=== PATIENT | female | born 1990 | race Caucasian/White ===

== ENCOUNTER → 2018-01-09 | Emergency (ER) | payer OTHER ==
[~2018-01-09] VITALS: Ht 165.1 cm; Wt 65.8 kg
[~2018-01-09] MED LIST: AMOX250 PO; AUGMENTIN125 MG/5 M PO; BETHANECHOL CHL10 MG; CEPHALEXIN250 MG/5 M PO; CIPRO500 MG PO; DIPHENOXYLATE-A1 TAB PO; FLAGYL500MG PO; FLEXERIL10 MG PO; FLEXERIL5 MG; GABAPENTIN300 MG PO; LOMITIL; NEURONTIN300 MG PO; PAMELOR25 MG PO; PERCOCET 5-3251 EACH PO; PERCOCET 5/3251 TAB PO; PROTONIX40 MG PO; PYRIDIUM200 MG; RECTICARE30 GM TP; TRAMADOL HCL-AP1 TAB PO; TRAMADOL HCL25 GM; ULTRACET PO
== END | disposition home or self-care (01) ==
LOC: ER 10:55
DX: N39.0 Urinary tract infection, site not specified (principal); M62.830 Muscle spasm of back

== ENCOUNTER → 2018-01-21 | Emergency (ER) | payer OTHER ==
[~2018-01-21] VITALS: Ht 165.1 cm; Wt 65.8 kg
[~2018-01-21] MED LIST changes: +AMOX-CLAV 875-1 EACH PO; +INTESTINEX680 M1 PO
== END | disposition home or self-care (01) ==
LOC: ER 23:15
DX: L03.317 Cellulitis of buttock (principal)

== ENCOUNTER 2018-02-15 09:01 | Outpatient (CLI) | payer OTHER | END 2018-02-15 09:03 | disposition home or self-care (01) | LOC: RAD 09:01 | DX: K60.5 Anorectal fistula (principal) ==

== ENCOUNTER 2018-03-06 14:52 | Outpatient (CLI) | payer OTHER | END 2018-03-06 18:46 | disposition home or self-care (01) | LOC: LAB 14:52 | DX: N30.00 Acute cystitis without hematuria (principal) ==

== ENCOUNTER 2018-06-09 15:50 | Emergency (ER) | payer OTHER ==
[~2018-06-09] VITALS: Ht 165.1 cm; Wt 70.8 kg
== END 2018-06-09 23:25 | disposition home or self-care (01) ==
LOC: ER 15:50
DX: K60.3 Anal fistula (principal)

== ENCOUNTER 2018-06-16 10:22 | Emergency (ER) | payer OTHER ==
[~2018-06-16] VITALS: Ht 165.1 cm; Wt 77.1 kg
== END 2018-06-16 18:29 | disposition home or self-care (01) ==
LOC: ER 10:22
DX: K61.0 Anal abscess (principal); K62.89 Other specified diseases of anus and rectum

== ENCOUNTER 2018-08-14 11:21 | Emergency (ER) | payer OTHER ==
[~2018-08-14] VITALS: Ht 165.1 cm; Wt 72.6 kg
[2018-08-14] MEDS ORDERED: TRANXENE T-TAB7.5 MG (11:54)
== END 2018-08-14 17:33 | disposition home or self-care (01) ==
LOC: ER 11:21
DX: N93.8 Other specified abnormal uterine and vaginal bleeding (principal)

== ENCOUNTER 2018-09-23 11:25 | Emergency (ER) | payer OTHER ==
[~2018-09-23] VITALS: Ht 165.1 cm; Wt 77.1 kg
[~2018-09-23 11:25] MED LIST changes: +TRANXENE T-TAB7.5 MG
== END 2018-09-23 16:57 | disposition home or self-care (01) ==
LOC: ER 11:25
DX: K59.09 Other constipation (principal); K80.80 Other cholelithiasis without obstruction

== ENCOUNTER → 2018-10-02 | Outpatient (CLI) | payer OTHER | END | disposition home or self-care (01) | LOC: NUCLEAR 08:00 | DX: R10.11 Right upper quadrant pain (principal) ==

== ENCOUNTER 2018-11-06 13:04 | Emergency (ER) | payer OTHER ==
[~2018-11-06] VITALS: Ht 165.1 cm; Wt 72.6 kg
== END 2018-11-06 18:47 | disposition home or self-care (01) ==
LOC: ER 13:04
DX: L02.31 Cutaneous abscess of buttock (principal)

== ENCOUNTER 2018-11-09 15:13 | Inpatient (IN) | payer OTHER ==
[~2018-11-09] VITALS: Ht 165.1 cm; Wt 74.8 kg
[2018-11-18] MEDS ORDERED: SUDOGEST60 MG PO (12:32)
[2018-11-18] MEDS ORDERED: LMX 515 GM TOP (12:32)
[2018-11-18] MEDS ORDERED: NEURONTIN300 MG PO (12:32)
[2018-11-18] MEDS ORDERED: FOLIC ACID1 MG PO (12:33)
[2018-11-18] MEDS ORDERED: Neurin-Sl Tablet Sl SL (12:33)
[2018-11-18] MEDS ORDERED: ZANTAC300 MG PO (12:34)
[2018-11-18] MEDS ORDERED: OXYC1TAB9 PO (12:34)
[2018-11-18] MEDS ORDERED: METRONIDAZOLE250 MG PO (12:35)
== END 2018-11-18 13:35 | disposition home or self-care (01) | DRG 347 ==
LOC: SURG 15:13 → SEC-K 15:13 → SURG 15:31 → SURH 11-13 21:42
PROVIDERS: ADMIT Surgery
PROC: 0D9Q0ZZ Drainage of Anus, Open Approach (ICD-10-PCS; principal; 2018-11-09)
PROC: 3E0T3BZ Introduction of Anesthetic Agent into Peripheral Nerves and Plexi, Percutaneous Approach (ICD-10-PCS; 2018-11-09)
PROC: 3E0F7GC Introduction of Other Therapeutic Substance into Respiratory Tract, Via Natural or Artificial Opening (ICD-10-PCS; 2018-11-13)
DX: K61.0 Anal abscess (principal); J15.7 Pneumonia due to Mycoplasma pneumoniae; K51.214 Ulcerative (chronic) proctitis with abscess; D62 Acute posthemorrhagic anemia; K51.211 Ulcerative (chronic) proctitis with rectal bleeding

== ENCOUNTER 2018-11-27 17:11 | Inpatient (IN) | payer OTHER ==
[~2018-11-27] VITALS: Ht 165.1 cm; Wt 74.8 kg
[~2018-11-27 17:11] MED LIST changes: +FOLIC ACID1 MG PO; +LMX 515 GM TOP; +METRONIDAZOLE250 MG PO; +Neurin-Sl Tablet Sl SL; +OXYC1TAB9 PO; +SUDOGEST60 MG PO; +ZANTAC300 MG PO
[2018-11-27] MEDS ORDERED: LEXAPRO20 MG PO (18:24)
--- NOTE | 2018-11-27 18:28 | NUR ---
PACIENTE ALERTA Y ORIENTADA X3, CON BUEN PATRON RESPIRATORIO Y SIGNOS VITALES ESTABLES, REFIERE DOLOR EN EL AREA RECTAL POR POSIBLE ABSCESO QUE REFIERE.. SE COLOCA EN CAMA EN ESPERA A SER LLAMADA.
--- NOTE | 2018-11-27 21:31 | NUR ---
EVALUA PTE. SE ORIENTA A PTE SOBRE TX MEDICO. PTE REFIERE COMPRENDER. SE REALIZAN MUESTRAS DE LABORATORIO BAJO MEDIDAS ASEPTICAS. SE ADMINISTRAN MEDICAMENTOS JESSY ORDEN MEDICA. PROCEDIMIENTOS LLEVADOS A CABO POR .
--- NOTE | 2018-11-28 01:31 | NUR ---
SE RECIBE PACIENTE ALERTA Y ORIENTADA X3 EN CLAUDIO CON BARANDAS ELEVADAS Y CABEZERA A 30 GRADOS. AREA DE VENOPUNCION PATENTE Y SHARLA DE EDEMA BAJANDO MEDICAMENTOS ORDENADOS. PACIENTE CON DOLOR EN EL GLUTEO, SE MANTIENE BAJO OBSERVACION.
--- NOTE | 2018-11-28 07:46 | NUR ---
SE RECIBE PTE ALERTA LA CUAL SE ENCUENTRA EN CLAUDIO CON BARANDAS ELEVADAS CON AREA DE VENOPUNCION SHARLA DE EDEMA Y [id number] CON IV FLUID 0.9NSS AT 150ML/HR EN ESPERA DE CONSULTA CON DR. Cameron WALTER.
[2018-12-04] MEDS ORDERED: DIPHENOXYLATE-1 EACH PO (14:16)
[2018-12-04] MEDS ORDERED: Tylenol 160MG/5 ML B PO (14:16)
[2018-12-04] MEDS ORDERED: CARAFATE1 GM PO (14:16)
[2018-12-04] MEDS ORDERED: MUPIROCIN22 GM TOP (14:16)
[2018-12-04] MEDS ORDERED: Intestinex CAP PO (14:16)
== END 2018-12-04 17:10 | disposition home or self-care (01) | DRG 394 ==
LOC: ER 17:11 → SURH 11-28 09:51 → SEC-K 11-28 09:51 → SURH 11-28 10:48
PROVIDERS: ADMIT Surgery
DX: K61.0 Anal abscess (principal); K50.90 Crohn's disease, unspecified, without complications; K62.6 Ulcer of anus and rectum; K29.60 Other gastritis without bleeding; K62.89 Other specified diseases of anus and rectum; A08.8 Other specified intestinal infections; B95.2 Enterococcus as the cause of diseases classified elsewhere; B96.1 Klebsiella pneumoniae [K. pneumoniae] as the cause of diseases classified elsewhere; R15.9 Full incontinence of feces

== ENCOUNTER → 2019-03-13 | Emergency (ER) | payer OTHER ==
[~2019-03-13] VITALS: Ht 165.1 cm; Wt 72.6 kg
[~2019-03-13] MED LIST changes: +ACETAMINOP160 MG/54 PO; +ACIDOPHILUS1 EAC3 PO; +CARAFATE1 GM PO; +DIPHENOXYLATE-1 EACH PO; +IMODIUM A-D2 M2 PO; +INTEGRA F CAPS1 EACH PO; +Intestinex CAP PO; +LEXAPRO20 MG PO; +MUPIROCIN22 GM TOP; +RESTORIL30 M1 PO; +Tylenol 160MG/5 ML B PO
== END | disposition home or self-care (01) ==
LOC: ER 13:04
DX: K61.0 Anal abscess (principal); K62.89 Other specified diseases of anus and rectum

== ENCOUNTER 2019-03-14 11:37 | Inpatient (IN) | payer OTHER ==
[~2019-03-14] VITALS: Ht 165.1 cm; Wt 70.3 kg
[~2019-03-14 11:37] MED LIST changes: -ACETAMINOP160 MG/54 PO; -ACIDOPHILUS1 EAC3 PO; -IMODIUM A-D2 M2 PO; -INTEGRA F CAPS1 EACH PO
[2019-03-16] MEDS ORDERED: ACIDOPHILUS1 EAC3 PO (15:50)
[2019-03-20] MEDS ORDERED: INTEGRA F CAPS1 EACH PO (09:08)
[2019-03-20] MEDS ORDERED: METRONIDAZOLE250 MG PO (09:10)
[2019-03-20] MEDS ORDERED: ACETAMINOP160 MG/54 PO (09:13)
[2019-03-20] MEDS ORDERED: NEURONTIN300 MG PO (09:14)
[2019-03-20] MEDS ORDERED: IMODIUM A-D2 M2 PO (09:16)
== END 2019-03-20 12:26 | disposition home or self-care (01) | DRG 386 ==
LOC: ER 11:37 → SEC-K 13:47 → SURG 13:47
PROVIDERS: ADMIT Surgery
PROC: 0DJD8ZZ Inspection of Lower Intestinal Tract, Via Natural or Artificial Opening Endoscopic (ICD-10-PCS; principal; 2019-03-16)
DX: K50.114 Crohn's disease of large intestine with abscess (principal); K61.1 Rectal abscess; K62.5 Hemorrhage of anus and rectum; L02.31 Cutaneous abscess of buttock; D62 Acute posthemorrhagic anemia; K50.111 Crohn's disease of large intestine with rectal bleeding; K50.10 Crohn's disease of large intestine without complications; K62.89 Other specified diseases of anus and rectum; F41.1 Generalized anxiety disorder; R15.2 Fecal urgency; K29.00 Acute gastritis without bleeding; R31.29 Other microscopic hematuria

== ENCOUNTER 2019-03-30 14:03 | Emergency (ER) | payer OTHER ==
[~2019-03-30] VITALS: Ht 165.1 cm; Wt 74.8 kg
[~2019-03-30 14:03] MED LIST changes: +ACETAMINOP160 MG/54 PO; +ACIDOPHILUS1 EAC3 PO; +IMODIUM A-D2 M2 PO; +INTEGRA F CAPS1 EACH PO
== END 2019-03-31 01:36 | disposition designated cancer center or children's hospital (05) ==
LOC: ER 14:03
DX: K62.89 Other specified diseases of anus and rectum (principal); K62.5 Hemorrhage of anus and rectum

== ENCOUNTER 2019-04-04 17:17 | Inpatient (IN) | payer OTHER ==
[~2019-04-04] VITALS: Ht 152.4 cm; Wt 5.0 kg
[2019-04-04] MEDS ORDERED: NEURONTIN300 MG PO (17:41)
[2019-04-18] MEDS ORDERED: NORFLEX100MG PO (13:44)
[2019-04-18] MEDS ORDERED: INTEGRA F CAPS1 EACH PO (13:44)
[2019-04-18] MEDS ORDERED: ACIDOPHILUS1 EAC3 PO (13:45)
[2019-04-18] MEDS ORDERED: NeurRONTin 400MG CAP PO (13:45)
[2019-04-18] MEDS ORDERED: OXYC1TAB9 PO (13:46)
== END 2019-04-18 15:15 | disposition home or self-care (01) | DRG 330 ==
LOC: ER 17:17 → SURH 19:32
PROVIDERS: ADMIT Surgery
PROC: 02HV33Z Insertion of Infusion Device into Superior Vena Cava, Percutaneous Approach (ICD-10-PCS; 2019-04-11)
PROC: 0D1N474 Bypass Sigmoid Colon to Cutaneous with Autologous Tissue Substitute, Percutaneous Endoscopic Approach (ICD-10-PCS; principal; 2019-04-11 15:00)
DX: K51.213 Ulcerative (chronic) proctitis with fistula (principal); K62.5 Hemorrhage of anus and rectum; D62 Acute posthemorrhagic anemia; K61.0 Anal abscess; F32.0 Major depressive disorder, single episode, mild; K56.690 Other partial intestinal obstruction; R15.9 Full incontinence of feces; K29.00 Acute gastritis without bleeding; F41.8 Other specified anxiety disorders; I80.9 Phlebitis and thrombophlebitis of unspecified site

== ENCOUNTER 2019-06-18 19:38 | Emergency (ER) | payer OTHER ==
[~2019-06-18] VITALS: Ht 165.1 cm; Wt 72.6 kg
[~2019-06-18 19:38] MED LIST changes: +NORFLEX100MG PO; +NeurRONTin 400MG CAP PO
[2019-06-20] MEDS ORDERED: [UNRECOGNIZED DRUG - OTHER] (19:13)
== END 2019-06-19 08:35 | disposition home or self-care (01) ==
LOC: ER 19:38
DX: K62.5 Hemorrhage of anus and rectum (principal); K50.90 Crohn's disease, unspecified, without complications

== ENCOUNTER → 2019-06-20 | Emergency (ER) | payer OTHER ==
[~2019-06-20] VITALS: Ht 165.1 cm; Wt 72.6 kg
[~2019-06-20] MED LIST changes: +[UNRECOGNIZED DRUG - OTHER]
== END | disposition home or self-care (01) ==
LOC: ER 18:52
DX: L02.31 Cutaneous abscess of buttock (principal); B96.29 Other Escherichia coli [E. coli] as the cause of diseases classified elsewhere; B96.89 Other specified bacterial agents as the cause of diseases classified elsewhere; E86.0 Dehydration

== ENCOUNTER 2019-07-03 15:40 | Emergency (ER) | payer OTHER ==
[~2019-07-03] VITALS: Ht 165.1 cm; Wt 72.6 kg
== END 2019-07-04 16:05 | disposition home or self-care (01) ==
LOC: ER 15:40
DX: K62.5 Hemorrhage of anus and rectum (principal); K62.6 Ulcer of anus and rectum

== ENCOUNTER 2019-08-18 12:39 | Emergency (ER) | payer OTHER ==
[~2019-08-18] VITALS: Ht 165.1 cm; Wt 74.8 kg
[2019-08-18] MEDS ORDERED: VITAMIN B125000 MCG (13:16)
== END 2019-08-19 06:42 | disposition home or self-care (01) ==
LOC: ER 12:39
DX: L02.31 Cutaneous abscess of buttock (principal); N83.292 Other ovarian cyst, left side; B96.29 Other Escherichia coli [E. coli] as the cause of diseases classified elsewhere; B96.4 Proteus (mirabilis) (morganii) as the cause of diseases classified elsewhere; B95.2 Enterococcus as the cause of diseases classified elsewhere; B95.4 Other streptococcus as the cause of diseases classified elsewhere
CPT/HCPCS: 72193; Q9965

== ENCOUNTER 2019-08-20 17:03 | Inpatient (IN) | payer OTHER ==
[~2019-08-20] VITALS: Ht 165.1 cm; Wt 74.8 kg
[~2019-08-20 17:03] MED LIST changes: +VITAMIN B125000 MCG
[2019-08-27] MEDS ORDERED: PHENERGAN25 MG PO (13:29)
[2019-08-27] MEDS ORDERED: JUVEN PACKET1 EAC1 PO (13:29)
[2019-08-27] MEDS ORDERED: CARAFATE1 GM PO (13:31)
[2019-08-27] MEDS ORDERED: INTEGRA F CAPS1 EACH PO (13:31)
== END 2019-08-27 14:21 | disposition home or self-care (01) | DRG 603 ==
LOC: ER 17:03 → SEC-K 08-21 07:32 → MEDJ 08-21 07:32 → SEC-K 08-21 09:52 → MEDI 08-21 17:15 → MEDJ 08-21 17:15
PROVIDERS: ADMIT Surgery
PROC: 8E0ZXY6 Isolation (ICD-10-PCS; principal; 2019-08-21)
DX: L02.31 Cutaneous abscess of buttock (principal); K50.118 Crohn's disease of large intestine with other complication; Z16.12 Extended spectrum beta lactamase (ESBL) resistance; Z93.3 Colostomy status; F41.8 Other specified anxiety disorders; D64.89 Other specified anemias; F32.9 Major depressive disorder, single episode, unspecified; B95.2 Enterococcus as the cause of diseases classified elsewhere; B96.29 Other Escherichia coli [E. coli] as the cause of diseases classified elsewhere

== ENCOUNTER 2019-09-23 16:47 | Emergency (ER) | payer OTHER ==
[~2019-09-23] VITALS: Ht 165.1 cm; Wt 74.8 kg
[~2019-09-23 16:47] MED LIST changes: +JUVEN PACKET1 EAC1 PO; +PHENERGAN25 MG PO
[2019-09-23] MEDS ORDERED: TILENOR (17:37)
== END 2019-09-23 21:30 | disposition home or self-care (01) ==
LOC: ER 16:47
DX: N83.292 Other ovarian cyst, left side (principal); D72.828 Other elevated white blood cell count; Z76.5 Malingerer [conscious simulation]

== ENCOUNTER → 2019-09-29 | Outpatient (CLI) | payer OTHER ==
[~2019-09-29] MED LIST changes: +TILENOR
== END | disposition home or self-care (01) ==
LOC: MAMO-SONO 08:15 → SONOGRAMA 08:22
DX: N83.02 Follicular cyst of left ovary (principal)

== ENCOUNTER 2019-10-02 18:46 | Emergency (ER) | payer OTHER ==
[~2019-10-02] VITALS: Ht 165.1 cm; Wt 77.1 kg
[2019-10-03] MEDS ORDERED: LEVSIN/SL0.125 MG PO (08:18)
== END 2019-10-03 08:45 | disposition home or self-care (01) ==
LOC: ER 18:46
DX: R10.32 Left lower quadrant pain (principal); R10.13 Epigastric pain

== ENCOUNTER 2019-10-19 18:14 | Emergency (ER) | payer OTHER ==
[~2019-10-19] VITALS: Ht 165.1 cm; Wt 79.4 kg
[~2019-10-19 18:14] MED LIST changes: +LEVSIN/SL0.125 MG PO
== END 2019-10-20 16:29 | disposition home or self-care (01) ==
LOC: ER 18:14
DX: L02.31 Cutaneous abscess of buttock (principal); B96.29 Other Escherichia coli [E. coli] as the cause of diseases classified elsewhere; B95.2 Enterococcus as the cause of diseases classified elsewhere

== ENCOUNTER 2019-10-24 12:23 | Emergency (ER) | payer OTHER ==
[~2019-10-24] VITALS: Ht 165.1 cm; Wt 79.4 kg
== END 2019-10-24 22:02 | disposition home or self-care (01) ==
LOC: ER 12:23
DX: K61.0 Anal abscess (principal); B96.29 Other Escherichia coli [E. coli] as the cause of diseases classified elsewhere; B95.2 Enterococcus as the cause of diseases classified elsewhere

== ENCOUNTER → 2019-11-20 09:54 | Outpatient (CLI) | payer OTHER | END | disposition home or self-care (01) | LOC: LAB 09:54 → EKG 09:54 | DX: K60.5 Anorectal fistula (principal); K50.013 Crohn's disease of small intestine with fistula; Z01.810 Encounter for preprocedural cardiovascular examination ==

== ENCOUNTER 2020-01-06 12:44 | Emergency (ER) | payer OTHER ==
[~2020-01-06] VITALS: Ht 165.1 cm; Wt 77.1 kg
[2020-01-07] MEDS ORDERED: GABAPENTIN400 MG PO (10:49)
[2020-01-07] MEDS ORDERED: CIPRO500 MG PO (10:49)
[2020-01-07] MEDS ORDERED: INTESTINEX680 M1 PO (10:49)
[2020-01-07] MEDS ORDERED: LEVSIN/SL0.125 MG SL (10:49)
== END 2020-01-07 10:57 | disposition home or self-care (01) ==
LOC: ER 12:44
DX: K94.01 Colostomy hemorrhage (principal)

== ENCOUNTER 2020-01-13 20:45 | Emergency (ER) | payer OTHER ==
[~2020-01-13] VITALS: Ht 165.1 cm; Wt 79.4 kg
[~2020-01-13 20:45] MED LIST changes: +GABAPENTIN400 MG PO; +LEVSIN/SL0.125 MG SL
[2020-01-13] MEDS ORDERED: XANAX1 MG (20:55)
== END 2020-01-14 10:59 | disposition home or self-care (01) ==
LOC: ER 20:45
DX: K94.01 Colostomy hemorrhage (principal); K58.0 Irritable bowel syndrome with diarrhea; R19.7 Diarrhea, unspecified; R11.0 Nausea; D64.89 Other specified anemias

== ENCOUNTER 2022-01-26 14:19 | Emergency (ER) | payer OTHER ==
[~2022-01-26] VITALS: Ht 165.1 cm; Wt 65.8 kg
[~2022-01-26 14:19] MED LIST changes: +XANAX1 MG
[2022-01-26] MEDS ORDERED: CLONAZEPAM0.5 MG PO (14:39)
== END 2022-01-26 20:05 | disposition home or self-care (01) ==
LOC: ER 14:19
DX: N93.8 Other specified abnormal uterine and vaginal bleeding (principal); D25.9 Leiomyoma of uterus, unspecified; N83.202 Unspecified ovarian cyst, left side; Z88.6 Allergy status to analgesic agent; Z88.8 Allergy status to other drugs, medicaments and biological substances

== ENCOUNTER 2022-02-01 12:06 | Emergency (ER) | payer OTHER ==
[~2022-02-01] VITALS: Ht 165.1 cm; Wt 65.8 kg
[~2022-02-01 12:06] MED LIST changes: +CLONAZEPAM0.5 MG PO
[2022-02-01] MEDS ORDERED: NORFLEX100MG PO (14:54)
[2022-02-01] MEDS ORDERED: MUPIROCIN1 G1 TOP (14:54)
[2022-02-17] MEDS ORDERED: XANAX2 MG PO (16:06)
[2022-02-17] MEDS ORDERED: FUSION PLUS CA1 EACH PO (16:06)
[2022-02-17] MEDS ORDERED: CLONAZEPAM0.5 MG PO (16:06)
== END 2022-02-01 15:19 | disposition home or self-care (01) ==
LOC: EMR PED 12:06 → ER 12:10 → EMR PED 12:10 → ER 15:19
DX: S59.902A Unspecified injury of left elbow, initial encounter (principal); Z88.6 Allergy status to analgesic agent

== ENCOUNTER 2022-02-15 18:16 | Emergency (ER) | payer OTHER ==
[~2022-02-15] VITALS: Ht 165.1 cm; Wt 63.5 kg
[~2022-02-15 18:16] MED LIST changes: +MUPIROCIN1 G1 TOP
[2022-02-17] MEDS ORDERED: XANAX2 MG PO (16:06)
[2022-02-17] MEDS ORDERED: CLONAZEPAM0.5 MG PO (16:06)
[2022-02-17] MEDS ORDERED: FUSION PLUS CA1 EACH PO (16:06)
== END 2022-02-15 23:01 | disposition home or self-care (01) ==
LOC: ER 18:16
DX: F41.9 Anxiety disorder, unspecified (principal); R00.2 Palpitations; Z88.8 Allergy status to other drugs, medicaments and biological substances

== ENCOUNTER 2022-02-22 10:29 | Day surgery (SDC) | payer OTHER ==
[~2022-02-22 10:29] MED LIST changes: +FUSION PLUS CA1 EACH PO; +XANAX2 MG PO
[2022-02-22] MEDS ORDERED: TYLENOL325 MG PO (11:08)
== END 2022-02-22 14:45 | disposition home or self-care (01) ==
LOC: CIR.AMB 10:29
PROVIDERS: ATTEND Obstetrics & Gynecology Gynecology
DX: N84.0 Polyp of corpus uteri (principal); Z88.8 Allergy status to other drugs, medicaments and biological substances; J45.909 Unspecified asthma, uncomplicated; E05.80 Other thyrotoxicosis without thyrotoxic crisis or storm; K21.9 Gastro-esophageal reflux disease without esophagitis

== ENCOUNTER → 2022-04-09 | Emergency (ER) | payer OTHER ==
[~2022-04-09] VITALS: Ht 165.1 cm; Wt 63.5 kg
[~2022-04-09] MED LIST changes: +PEPCID AC20 MG; +TYLENOL325 MG PO
== END | disposition home or self-care (01) ==
LOC: ER 06:58
DX: B34.8 Other viral infections of unspecified site (principal)

== ENCOUNTER 2022-05-09 18:20 | Emergency (ER) | payer OTHER ==
[~2022-05-09] VITALS: Ht 165.1 cm; Wt 68.0 kg
== END 2022-05-09 22:09 | disposition home or self-care (01) ==
LOC: ER 18:20
DX: R51.9 Headache, unspecified (principal); Z88.8 Allergy status to other drugs, medicaments and biological substances

== ENCOUNTER 2022-05-12 14:16 | Emergency (ER) | payer OTHER ==
[~2022-05-12] VITALS: Ht 165.1 cm; Wt 68.0 kg
== END 2022-05-12 18:44 | disposition home or self-care (01) ==
LOC: ER 14:16
DX: F41.9 Anxiety disorder, unspecified (principal); R07.9 Chest pain, unspecified; R51.9 Headache, unspecified; Z88.6 Allergy status to analgesic agent; Z88.1 Allergy status to other antibiotic agents

== ENCOUNTER 2022-06-29 09:58 | Emergency (ER) | payer OTHER ==
[~2022-06-29] VITALS: Ht 165.1 cm; Wt 68.0 kg
== END 2022-06-29 14:41 | disposition home or self-care (01) ==
LOC: ER 09:58
DX: N39.0 Urinary tract infection, site not specified (principal); R11.0 Nausea; E05.90 Thyrotoxicosis, unspecified without thyrotoxic crisis or storm; Z20.822 Contact with and (suspected) exposure to COVID-19; Z91.041 Radiographic dye allergy status; Z88.6 Allergy status to analgesic agent; Z88.5 Allergy status to narcotic agent

== ENCOUNTER 2022-06-30 13:19 | Emergency (ER) | payer OTHER ==
[~2022-06-30] VITALS: Ht 152.4 cm; Wt 65.8 kg
== END 2022-06-30 18:14 | disposition home or self-care (01) ==
LOC: ER 13:19
DX: F41.9 Anxiety disorder, unspecified (principal); J45.909 Unspecified asthma, uncomplicated; K21.9 Gastro-esophageal reflux disease without esophagitis; E03.9 Hypothyroidism, unspecified; N39.0 Urinary tract infection, site not specified; Z91.041 Radiographic dye allergy status; Z88.2 Allergy status to sulfonamides; Z88.6 Allergy status to analgesic agent

== ENCOUNTER 2022-09-30 13:20 | Emergency (ER) | payer OTHER ==
[~2022-09-30] VITALS: Ht 165.1 cm; Wt 65.8 kg
[~2022-09-30 13:20] MED LIST changes: +DOLOGESIC-DF 51 EACH PO
[2022-09-30] MEDS ORDERED: PEPCID AC20 MG PO (18:09)
[2022-09-30] MEDS ORDERED: LEVSIN/SL0.125 MG SL (18:09)
[2022-09-30] MEDS ORDERED: CARAFATE1 GM PO (18:09)
== END 2022-09-30 18:28 | disposition home or self-care (01) ==
LOC: ER 13:20
DX: R10.84 Generalized abdominal pain (principal); Z88.8 Allergy status to other drugs, medicaments and biological substances

== ENCOUNTER 2022-11-17 03:03 | Emergency (ER) | payer OTHER ==
[~2022-11-17] VITALS: Ht 165.1 cm; Wt 68.0 kg
[~2022-11-17 03:03] MED LIST changes: +PEPCID AC20 MG PO
[2022-11-17] MEDS ORDERED: PAXLOVID 300-11 EACH PO (07:52)
== END 2022-11-17 09:07 ==
LOC: ER 03:03
DX: U07.1 COVID-19 (principal); Z88.8 Allergy status to other drugs, medicaments and biological substances

== ENCOUNTER → 2023-01-02 | Emergency (ER) | payer OTHER ==
[~2023-01-02] VITALS: Ht 165.1 cm; Wt 68.0 kg
[~2023-01-02] MED LIST changes: +PAXLOVID 300-11 EACH PO
== END | disposition home or self-care (01) ==
LOC: ER 20:30
DX: R51.9 Headache, unspecified (principal); Z88.8 Allergy status to other drugs, medicaments and biological substances

== ENCOUNTER → 2023-01-05 | Emergency (ER) | payer OTHER ==
[~2023-01-05] VITALS: Ht 162.6 cm; Wt 63.5 kg
== END | disposition home or self-care (01) ==
LOC: ER 10:46
DX: M54.2 Cervicalgia (principal); K29.70 Gastritis, unspecified, without bleeding; Z88.2 Allergy status to sulfonamides; Z91.041 Radiographic dye allergy status; Z88.6 Allergy status to analgesic agent

== ENCOUNTER 2023-01-23 22:44 | Emergency (ER) | payer OTHER ==
[~2023-01-23] VITALS: Ht 165.1 cm; Wt 65.8 kg
== END 2023-01-24 02:59 | disposition home or self-care (01) ==
LOC: ER 22:44
DX: R51.9 Headache, unspecified (principal); R11.10 Vomiting, unspecified

== ENCOUNTER → 2023-01-26 | Emergency (ER) | payer OTHER ==
[~2023-01-26] VITALS: Ht 165.1 cm; Wt 65.8 kg
== END | disposition left against medical advice (07) ==
LOC: ER 15:32
DX: R51.9 Headache, unspecified (principal); Z91.041 Radiographic dye allergy status; Z88.5 Allergy status to narcotic agent; Z88.8 Allergy status to other drugs, medicaments and biological substances

== ENCOUNTER 2023-03-22 09:38 | Emergency (ER) | payer OTHER ==
[~2023-03-22] VITALS: Ht 165.1 cm; Wt 65.8 kg
== END 2023-03-22 15:52 | disposition home or self-care (01) ==
LOC: ER 09:38
DX: N93.8 Other specified abnormal uterine and vaginal bleeding (principal)

== ENCOUNTER 2023-07-01 22:15 | Emergency (ER) | payer OTHER ==
[~2023-07-01] VITALS: Ht 165.1 cm; Wt 68.0 kg
== END 2023-07-02 08:01 | disposition home or self-care (01) ==
LOC: ER 22:15
PROVIDERS: General Practice
DX: D25.9 Leiomyoma of uterus, unspecified (principal); N93.9 Abnormal uterine and vaginal bleeding, unspecified; N83.201 Unspecified ovarian cyst, right side; Z88.8 Allergy status to other drugs, medicaments and biological substances

== ENCOUNTER 2023-08-13 11:33 | Emergency (ER) | payer OTHER ==
[~2023-08-13] VITALS: Ht 165.1 cm; Wt 68.0 kg
[~2023-08-13 11:33] MED LIST changes: +TOPROL XL25 M1 PO
[2023-08-13] MEDS ORDERED: NORFLEX100MG PO (20:05)
== END 2023-08-13 20:13 | disposition home or self-care (01) ==
LOC: ER 11:33
DX: R53.81 Other malaise (principal); Z88.6 Allergy status to analgesic agent; Z91.041 Radiographic dye allergy status

== ENCOUNTER 2023-09-09 09:13 | Emergency (ER) | payer OTHER ==
[~2023-09-09] VITALS: Ht 165.1 cm; Wt 67.1 kg
== END 2023-09-09 12:13 | disposition home or self-care (01) ==
LOC: ER 09:13
DX: R07.9 Chest pain, unspecified (principal); I49.8 Other specified cardiac arrhythmias; Z91.040 Latex allergy status; Z88.6 Allergy status to analgesic agent; M94.0 Chondrocostal junction syndrome [Tietze]

== ENCOUNTER 2023-09-10 20:28 | Emergency (ER) | payer OTHER ==
[~2023-09-10] VITALS: Ht 165.1 cm; Wt 68.0 kg
== END 2023-09-10 21:34 | disposition home or self-care (01) ==
LOC: ER 20:28
DX: M54.2 Cervicalgia (principal); Z88.6 Allergy status to analgesic agent; Z91.041 Radiographic dye allergy status

== ENCOUNTER → 2023-10-02 | Emergency (ER) | payer OTHER ==
[~2023-10-02] VITALS: Ht 165.1 cm; Wt 65.8 kg
== END | disposition left against medical advice (07) ==
LOC: ER 17:42
DX: M54.50 Low back pain, unspecified (principal); Z88.6 Allergy status to analgesic agent; Z88.8 Allergy status to other drugs, medicaments and biological substances; Z91.041 Radiographic dye allergy status

== ENCOUNTER 2023-10-05 08:02 | Emergency (ER) | payer OTHER ==
[~2023-10-05] VITALS: Ht 162.6 cm; Wt 63.5 kg
[2023-10-05] MEDS ORDERED: PEPCID AC20 MG PO (08:38)
== END 2023-10-05 08:52 | disposition home or self-care (01) ==
LOC: ER 08:02
DX: M54.2 Cervicalgia (principal); J02.9 Acute pharyngitis, unspecified; E04.1 Nontoxic single thyroid nodule; Z88.6 Allergy status to analgesic agent; Z88.8 Allergy status to other drugs, medicaments and biological substances; Z91.041 Radiographic dye allergy status

== ENCOUNTER 2023-10-22 02:27 | Emergency (ER) | payer OTHER ==
[~2023-10-22] VITALS: Ht 165.1 cm; Wt 61.2 kg
== END 2023-10-22 04:24 | disposition home or self-care (01) ==
LOC: ER 02:27
DX: J06.9 Acute upper respiratory infection, unspecified (principal)

== ENCOUNTER 2023-11-12 12:26 | Emergency (ER) | payer OTHER ==
[~2023-11-12] VITALS: Ht 165.1 cm; Wt 63.5 kg
== END 2023-11-12 16:33 | disposition home or self-care (01) ==
LOC: ER 12:27
DX: J06.9 Acute upper respiratory infection, unspecified (principal); Z88.8 Allergy status to other drugs, medicaments and biological substances

== ENCOUNTER 2023-11-20 12:30 | Emergency (ER) | payer OTHER ==
[~2023-11-20] VITALS: Ht 165.1 cm; Wt 65.8 kg
[2023-11-20 14:21] LABS: HEMATOCRIT 36.6 % (36.0-45.00); HEMOGLOBIN 12.4 g/dL (12.0-15.00); MEAN CORPUSCULAR HEMOGLOBIN 27.3 pg (27.00-32.0); MEAN CORPUSCULAR HGB CONC 33.8 g/dl (32.0-36.0); PLATELET COUNT 249 K/uL (150-450); RED BLOOD COUNT 4.52 M/uL (4.00-6.00)
[2023-11-20 14:25] LABS: URINE APPEARANCE Clear; URINE BILIRRUBIN Negative (NEGATIVE); URINE BLOOD Large; URINE COLOR Yellow; URINE GLUCOSE Negative (NEGATIVE); URINE LEUKOCYTE Trace; URINE NITRATE Negative; URINE PROTEIN Negative (NEGATIVE); URINE UROBILINOGEN 0.2 E.U./dl
[2023-11-20 14:28] LABS: URINE BACTERIA 45.3 uL (0.0-1933); URINE EPITHELIAL CELLS 3.3 uL (0.0-38.8); URINE RBC 83.6 uL (0.0-20.8); URINE WBC 7.8 uL (0.0-23.2)
[2023-11-20 14:55] LABS: ALBUMIN 4.4 gm/dL (3.4-5.0); BILIRUBIN TOTAL 0.54 mg/dL (0.3-1.2); BILIRUBIN,CONJUGATED 0.15 mg/dL (0.0-0.2); BILIRUBIN,UNCONJUGATED 0.39 mg/dL (0.0-0.6); CREATININE SERUM 0.74 mg/dL (0.55-1.02); GFR 89.31; POTASSIUM 4.05 mEq/L (3.5-5.1); TOTAL PROTEIN 8.6 gm/dL (6.4-8.2)
== END 2023-11-20 17:58 | disposition home or self-care (01) ==
LOC: ER 12:30
PROVIDERS: General Practice
DX: K29.70 Gastritis, unspecified, without bleeding (principal)

== ENCOUNTER 2023-12-25 04:03 | Emergency (ER) | payer OTHER ==
[~2023-12-25] VITALS: Ht 165.1 cm; Wt 63.5 kg
[2023-12-25] MEDS ORDERED: FAMOTIDINE/PF 20 MG in 0.9 % SODIUM CHLORIDE 8 ML IV PUSH STA (04:36)
[2023-12-25] MEDS ORDERED: 0.9 % SODIUM CHLORIDE 500 ML IV ONE (04:45)
[2023-12-25] MEDS ORDERED: ONDANSETRON HCL 2 MG/ML VIAL IV ONE (04:45)
[2023-12-25] MEDS ORDERED: BUTALB/ACETAMINOPHEN/CAFFEINE 1 TAB TABLET PO ONE (04:45)
[2023-12-25] MEDS ORDERED: ZOFRAN8 MG PO (04:50)
== END 2023-12-25 05:46 | disposition home or self-care (01) ==
LOC: ER 04:03
DX: K29.70 Gastritis, unspecified, without bleeding (principal); R51.9 Headache, unspecified; Z88.6 Allergy status to analgesic agent; Z88.8 Allergy status to other drugs, medicaments and biological substances; Z91.041 Radiographic dye allergy status

== ENCOUNTER → 2023-12-31 | Emergency (ER) | payer OTHER ==
[~2023-12-31] VITALS: Ht 165.1 cm; Wt 65.8 kg
[~2023-12-31] MED LIST changes: +ZOFRAN8 MG PO
== END | disposition left against medical advice (07) ==
LOC: ER 10:40
DX: Z53.21 Procedure and treatment not carried out due to patient leaving prior to being seen by health care provider (principal)

== ENCOUNTER 2024-01-13 11:13 | Emergency (ER) | payer OTHER ==
[~2024-01-13] VITALS: Ht 165.1 cm; Wt 63.5 kg
[2024-01-13] MEDS ORDERED: FAMOtidine 10 MG/ML (4ML VIAL) IV STA (12:30)
[2024-01-13] MEDS ORDERED: ONDANSETRON HCL 2 MG/ML VIAL IV STA (12:31)
[2024-01-13] MEDS ORDERED: METOCLOPRAMIDE HCL 5 MG/ML VIAL IV STA (12:31)
[2024-01-13] MEDS ORDERED: 0.9 % SODIUM CHLORIDE 1,000 ML IV STA (12:33)
[2024-01-13 12:53] LABS: HEMATOCRIT 36.8 % (36.0-45.00); HEMOGLOBIN 12.5 g/dL (12.0-15.00); MEAN CELL VOLUME 81.3 fL (80.00-100.00); MEAN CORPUSCULAR HEMOGLOBIN 27.6 pg (27.00-32.0); PLATELET COUNT 236 K/uL (150-450); RED BLOOD COUNT 4.53 M/uL (4.00-6.00); RED CELL DISTRIBUTION WIDTH 13.9 % (11.5-14.5)
[2024-01-13 13:28] LABS: URINE APPEARANCE Clear; URINE BILIRRUBIN Negative (NEGATIVE); URINE BLOOD Trace; URINE COLOR Yellow; URINE GLUCOSE Negative (NEGATIVE); URINE LEUKOCYTE Small; URINE NITRATE Negative; URINE PROTEIN Negative (NEGATIVE); URINE UROBILINOGEN 0.2 E.U./dl
[2024-01-13 13:29] LABS: ALBUMIN 4.1 gm/dL (3.4-5.0); BILIRUBIN TOTAL 0.58 mg/dL (0.3-1.2); BILIRUBIN,CONJUGATED 0.14 mg/dL (0.0-0.2); BILIRUBIN,UNCONJUGATED 0.44 mg/dL (0.0-0.6); CALCIUM 9.7 mg/dL (8.5-10.1); CREATININE SERUM 0.83 mg/dL (0.55-1.02); GFR 78.23; POTASSIUM 4.29 mEq/L (3.5-5.1); TOTAL PROTEIN 8.7 gm/dL (6.4-8.2)
[2024-01-13 13:32] LABS: URINE BACTERIA 134.7 uL (0.0-1933); URINE EPITHELIAL CELLS 2.4 uL (0.0-38.8); URINE RBC 3.3 uL (0.0-20.8); URINE WBC 27.7 uL (0.0-23.2)
== END 2024-01-13 16:39 | disposition home or self-care (01) ==
LOC: ER 11:13
PROVIDERS: General Practice
DX: R10.9 Unspecified abdominal pain (principal); Z93.3 Colostomy status; F41.8 Other specified anxiety disorders; K21.9 Gastro-esophageal reflux disease without esophagitis; Z91.041 Radiographic dye allergy status; Z88.6 Allergy status to analgesic agent; R11.10 Vomiting, unspecified

== ENCOUNTER 2024-06-15 18:52 | Emergency (ER) | payer OTHER ==
[~2024-06-15] VITALS: Ht 165.1 cm; Wt 63.5 kg
[~2024-06-15 18:52] MED LIST changes: +ANUSOL-HC25 MG RECTAL; +BENTYL10 MG/1 ML IM; +LEXAPRO5 MG PO; +XANAX XR0.5 MG PO; +XANAX0.25 MG PO
[2024-06-15] MEDS ORDERED: ORPHENADRINE CITRATE 30 MG/ML AMPUL ONE (20:38)
[2024-06-15] MEDS ORDERED: ORPHENADRINE CITRATE 30 MG/ML AMPUL IV ONE (20:45)
[2024-06-15 20:50] LABS: HEMATOCRIT 35.8 % (36.0-45.00); HEMOGLOBIN 11.9 g/dL (12.0-15.00); MEAN CELL VOLUME 82.2 fL (80.00-100.00); MEAN CORPUSCULAR HEMOGLOBIN 27.4 pg (27.00-32.0); MEAN CORPUSCULAR HGB CONC 33.3 g/dl (32.0-36.0); PLATELET COUNT 221 K/uL (150-450); RED BLOOD COUNT 4.35 M/uL (4.00-6.00); RED CELL DISTRIBUTION WIDTH 15.3 % (11.5-14.5)
[2024-06-15 20:51] LABS: URINE APPEARANCE Clear; URINE BILIRRUBIN Negative (NEGATIVE); URINE BLOOD Trace; URINE COLOR Yellow; URINE GLUCOSE Negative (NEGATIVE); URINE KETONE Negative (NEGATIVE); URINE LEUKOCYTE Negative; URINE NITRATE Negative; URINE PROTEIN Negative (NEGATIVE); URINE UROBILINOGEN 0.2 E.U./dl
[2024-06-15 20:54] LABS: URINE BACTERIA 16.3 uL (0.0-1933); URINE EPITHELIAL CELLS 1.3 uL (0.0-38.8); URINE RBC 7.3 uL (0.0-20.8); URINE WBC 0.6 uL (0.0-23.2)
[2024-06-15 21:19] LABS: ALBUMIN 4.3 gm/dL (3.4-5.0); BILIRUBIN TOTAL 0.35 mg/dL (0.3-1.2); CALCIUM 9.2 mg/dL (8.5-10.1); CREATININE SERUM 0.65 mg/dL (0.55-1.02); GFR 103.72; GLOBULINA 4.1 G/DL (2.4-3.5); POTASSIUM 3.67 mEq/L (3.5-5.1); TOTAL PROTEIN 8.4 gm/dL (6.4-8.2)
== END 2024-06-15 23:09 | disposition home or self-care (01) ==
LOC: ER 18:54
PROVIDERS: Emergency Medicine
DX: M54.10 Radiculopathy, site unspecified (principal); M62.830 Muscle spasm of back; R10.9 Unspecified abdominal pain; Z88.6 Allergy status to analgesic agent; Z88.8 Allergy status to other drugs, medicaments and biological substances; Z91.041 Radiographic dye allergy status

== ENCOUNTER → 2024-07-22 | Emergency (ER) | payer OTHER ==
[~2024-07-22] VITALS: Ht 165.1 cm; Wt 65.8 kg
[~2024-07-22] MED LIST changes: +CLORAZEPATE DI7.5 MG PO
== END | disposition left against medical advice (07) ==
LOC: ER 10:22
DX: Z53.21 Procedure and treatment not carried out due to patient leaving prior to being seen by health care provider (principal)

== ENCOUNTER 2024-11-03 13:27 | Emergency (ER) | payer OTHER ==
[~2024-11-03] VITALS: Ht 165.1 cm; Wt 65.8 kg
[2024-11-03] MEDS ORDERED: ACETAMINOPHEN 500 MG GEL..CAP PO ONE (16:26)
[2024-11-03] MEDS ORDERED: ACETAMINOPHEN 325 MG TABLET PO ONE (16:30)
[2024-11-03 18:29] LABS: ALBUMIN 3.9 gm/dL (3.4-5.0); BILIRUBIN TOTAL 0.52 mg/dL (0.3-1.2); CREATININE SERUM 0.64 mg/dL (0.55-1.02); GLOBULINA 3.7 G/DL (2.4-3.5); HEMATOCRIT 35.3 % (36.0-45.00); HEMOGLOBIN 12.1 g/dL (12.0-15.00); MEAN CELL VOLUME 85.2 fL (80.00-100.00); MEAN CORPUSCULAR HEMOGLOBIN 29.2 pg (27.00-32.0); MEAN CORPUSCULAR HGB CONC 34.3 g/dl (32.0-36.0); PLATELET COUNT 215 K/uL (150-450); POTASSIUM 3.71 mEq/L (3.5-5.1); RED BLOOD COUNT 4.15 M/uL (4.00-6.00); RED CELL DISTRIBUTION WIDTH 13.4 % (11.5-14.5); TOTAL PROTEIN 7.6 gm/dL (6.4-8.2)
[2024-11-03 18:40] LABS: PH,URINE 5.5 (5.0-8.0); URINE APPEARANCE Cloudy; URINE BILIRRUBIN Negative (NEGATIVE); URINE BLOOD Large; URINE COLOR Yellow; URINE GLUCOSE Negative (NEGATIVE); URINE KETONE 15 (NEGATIVE); URINE LEUKOCYTE Trace; URINE NITRATE Negative; URINE PROTEIN Negative (NEGATIVE); URINE UROBILINOGEN 0.2 E.U./dl
[2024-11-03 18:44] LABS: URINE BACTERIA 85.6 uL (0.0-1933); URINE EPITHELIAL CELLS 9.7 uL (0.0-38.8); URINE RBC 1605.9 uL (0.0-20.8); URINE WBC 21.9 uL (0.0-23.2)
[2024-11-03] MEDS ORDERED: BACTRIM DS TAB1 EACH PO (18:56)
[2024-11-03] MEDS ORDERED: PEPCID AC20 MG PO (18:56)
[2024-11-03] MEDS ORDERED: TAMS0.4C PO (18:56)
== END 2024-11-03 19:12 | disposition home or self-care (01) ==
LOC: ER 13:29
PROVIDERS: General Practice
DX: R10.9 Unspecified abdominal pain (principal); Z91.041 Radiographic dye allergy status; Z88.8 Allergy status to other drugs, medicaments and biological substances; Z93.2 Ileostomy status; N39.0 Urinary tract infection, site not specified

== ENCOUNTER 2024-11-14 13:11 | Emergency (ER) | payer OTHER ==
[~2024-11-14] VITALS: Ht 165.1 cm; Wt 61.2 kg
[~2024-11-14 13:11] MED LIST changes: +BACTRIM DS TAB1 EACH PO; +TAMS0.4C PO
[2024-11-14] MEDS ORDERED: FAMOTIDINE/PF 20 MG in 0.9 % SODIUM CHLORIDE 8 ML IV PUSH STA (13:38)
[2024-11-14] MEDS ORDERED: ONDANSETRON HCL 2 MG/ML VIAL IV ONE (13:45)
[2024-11-14] MEDS ORDERED: HYOSCYAMINE SULFATE 0.125 MG TAB.SUBL SL ONE (13:45)
[2024-11-14] MEDS ORDERED: 0.9 % SODIUM CHLORIDE 1,000 ML IV SCH (13:45)
[2024-11-14] MEDS ORDERED: HYOSCYAMINE SULFATE 0.125 MG TAB.SUBL ONE (14:10)
[2024-11-14] MEDS ORDERED: ONDANSETRON HCL 2 MG/ML VIAL ONE (14:11)
[2024-11-14] MEDS ORDERED: FAMOTIDINE/PF 20 MG/2 ML VIAL ONE (14:11)
[2024-11-14 14:20] LABS: HEMATOCRIT 36.9 % (36.0-45.00); HEMOGLOBIN 12.7 g/dL (12.0-15.00); MEAN CELL VOLUME 85.6 fL (80.00-100.00); MEAN CORPUSCULAR HEMOGLOBIN 29.5 pg (27.00-32.0); MEAN CORPUSCULAR HGB CONC 34.4 g/dl (32.0-36.0); PLATELET COUNT 203 K/uL (150-450); RED BLOOD COUNT 4.31 M/uL (4.00-6.00); RED CELL DISTRIBUTION WIDTH 13.5 % (11.5-14.5)
[2024-11-14 15:46] LABS: BILIRUBIN TOTAL 0.91 mg/dL (0.3-1.2); CALCIUM 9.2 mg/dL (8.5-10.1); CREATININE SERUM 0.58 mg/dL (0.55-1.02); GFR 117.63; GLOBULINA 3.4 G/DL (2.4-3.5); POTASSIUM 3.75 mEq/L (3.5-5.1); TOTAL PROTEIN 7.4 gm/dL (6.4-8.2)
[2024-11-14 17:56] LABS: URINE APPEARANCE Clear; URINE BILIRRUBIN Negative (NEGATIVE); URINE BLOOD Moderate; URINE COLOR Yellow; URINE GLUCOSE Negative (NEGATIVE); URINE LEUKOCYTE Small; URINE NITRATE Negative; URINE PROTEIN Negative (NEGATIVE); URINE UROBILINOGEN 0.2 E.U./dl
[2024-11-14 17:57] LABS: URINE BACTERIA 445.4 uL (0.0-1933); URINE EPITHELIAL CELLS 17.2 uL (0.0-38.8); URINE RBC 9.5 uL (0.0-20.8); URINE WBC 88.4 uL (0.0-23.2)
[2024-11-14 17:58] LABS: URINE KETONE >=160 (NEGATIVE)
== END 2024-11-14 18:48 | disposition home or self-care (01) ==
LOC: ER 13:11
PROVIDERS: General Practice
DX: R10.2 Pelvic and perineal pain (principal); Z93.3 Colostomy status; Z88.5 Allergy status to narcotic agent; Z88.6 Allergy status to analgesic agent; Z88.8 Allergy status to other drugs, medicaments and biological substances; Z91.041 Radiographic dye allergy status

== ENCOUNTER 2025-01-18 10:45 | Emergency (ER) | payer OTHER ==
[~2025-01-18] VITALS: Ht 165.1 cm; Wt 65.8 kg
[2025-01-18] MEDS ORDERED: 0.9 % SODIUM CHLORIDE 1,000 ML IV STA (14:47)
[2025-01-18] MEDS ORDERED: FAMOtidine 10 MG/ML (4ML VIAL) IV STA (14:50)
[2025-01-18] MEDS ORDERED: FAMOTIDINE/PF 20 MG/2 ML VIAL ONE (15:16)
[2025-01-18 15:48] LABS: HEMOGLOBIN 12.2 g/dL (12.0-15.00); MEAN CELL VOLUME 86.6 fL (80.00-100.00); MEAN CORPUSCULAR HEMOGLOBIN 29.3 pg (27.00-32.0); MEAN CORPUSCULAR HGB CONC 33.8 g/dl (32.0-36.0); PLATELET COUNT 221 K/uL (150-450); RED BLOOD COUNT 4.16 M/uL (4.00-6.00); RED CELL DISTRIBUTION WIDTH 13.4 % (11.5-14.5)
[2025-01-18 16:11] LABS: BILIRUBIN TOTAL 0.71 mg/dL (0.3-1.2); BILIRUBIN,CONJUGATED 0.15 mg/dL (0.0-0.2); BILIRUBIN,UNCONJUGATED 0.56 mg/dL (0.0-0.6); CALCIUM 9.2 mg/dL (8.5-10.1); CREATININE SERUM 0.57 mg/dL (0.55-1.02); GFR 120.01; POTASSIUM 3.89 mEq/L (3.5-5.1); TOTAL PROTEIN 7.6 gm/dL (6.4-8.2)
[2025-01-18 16:14] LABS: PH,URINE 5.5 (5.0-8.0); URINE APPEARANCE Clear; URINE BILIRRUBIN Negative (NEGATIVE); URINE BLOOD Small; URINE COLOR Yellow; URINE GLUCOSE Negative (NEGATIVE); URINE KETONE 15 (NEGATIVE); URINE LEUKOCYTE Moderate; URINE NITRATE Negative; URINE PROTEIN Negative (NEGATIVE); URINE UROBILINOGEN 0.2 E.U./dl
[2025-01-18 16:18] LABS: URINE BACTERIA 998.6 uL (0.0-1933); URINE EPITHELIAL CELLS 11.7 uL (0.0-38.8); URINE RBC 24.7 uL (0.0-20.8); URINE WBC 249.4 uL (0.0-23.2)
[2025-01-18] MEDS ORDERED: ACETAMINOPHEN 325 MG TABLET PO ONE (17:30)
[2025-01-18] MEDS ORDERED: ACETAMINOPHEN 500 MG GEL..CAP PO ONE (19:12)
[2025-01-18] MEDS ORDERED: CIPRO500 MG PO (19:16)
== END 2025-01-18 19:24 | disposition home or self-care (01) ==
LOC: ER 10:46
PROVIDERS: General Practice
DX: N39.0 Urinary tract infection, site not specified (principal); Z88.8 Allergy status to other drugs, medicaments and biological substances

== ENCOUNTER 2025-02-08 13:40 | Emergency (ER) | payer OTHER ==
[~2025-02-08] VITALS: Ht 165.1 cm; Wt 65.8 kg
[2025-02-08] MEDS ORDERED: ACETAMINOPHEN 500 MG GEL..CAP PO ONE ×2 (15:15→15:45)
== END 2025-02-08 17:33 | disposition home or self-care (01) ==
LOC: ER 13:41
DX: M62.838 Other muscle spasm (principal); M25.512 Pain in left shoulder; R07.89 Other chest pain; Z88.8 Allergy status to other drugs, medicaments and biological substances

== ENCOUNTER → 2025-03-10 | Emergency (ER) | payer OTHER ==
[~2025-03-10] VITALS: Ht 165.1 cm; Wt 59.0 kg
[~2025-03-10] MED LIST changes: +ORPHENADRINE CITRATE 30 MG/ML AMPUL IM ONE
== END | disposition home or self-care (01) ==
LOC: ER 08:33
DX: M54.2 Cervicalgia (principal); Z88.5 Allergy status to narcotic agent; Z88.8 Allergy status to other drugs, medicaments and biological substances; Z91.041 Radiographic dye allergy status

== ENCOUNTER 2025-03-25 04:52 | Emergency (ER) | payer OTHER ==
[~2025-03-25] VITALS: Ht 165.1 cm; Wt 63.5 kg
[~2025-03-25 04:52] MED LIST changes: -ORPHENADRINE CITRATE 30 MG/ML AMPUL IM ONE
[2025-03-25] MEDS ORDERED: FAMOTIDINE/PF 20 MG/2 ML VIAL IV PUSH STA (05:55)
[2025-03-25] MEDS ORDERED: ONDANSETRON HCL 2 MG/ML VIAL IV STA (05:56)
[2025-03-25] MEDS ORDERED: 0.9 % SODIUM CHLORIDE 1,000 ML IV ONE (06:00)
[2025-03-25] MEDS ORDERED: FAMOTIDINE/PF 20 MG/2 ML VIAL ONE (06:02)
[2025-03-25] MEDS ORDERED: ONDANSETRON HCL 2 MG/ML VIAL ONE (06:03)
[2025-03-25] MEDS ORDERED: BARIUM SULFATE 450 ML ORAL.SUSP PO ONE (06:04)
[2025-03-25 07:15] LABS: BASO % 0.9 % (0.1-1.2); EOS # 0.05 (0.04-0.54); EOS % 0.9 % (0.7-7.0); HEMOGLOBIN 11.7 g/dL (11.2-15.7); LYMPH # 1.44 (1.18-3.74); LYMPH % 26.9 % (19.3-53.1); MEAN CORPUSCULAR HEMOGLOBIN 28.4 pg (25.6-32.2); MONO # 0.26 (0.24-0.82); MONO % 4.9 % (4.7-12.5); NEUT # 3.55 (1.56-6.13); NEUT % 66.2 % (34.0-71.1); PLATELET COUNT 177 K/uL (163-369); RED BLOOD COUNT 4.12 M/uL (3.93-5.22); RED CELL DISTRIBUTION WIDTH 12.6 % (11.6-14.4)
[2025-03-25 07:48] LABS: PROTHROMBIN TIME 10.9 SECONDS (9.0-11.5)
[2025-03-25 07:58] LABS: ALBUMIN 4.1 gm/dL (3.4-5.0); BILIRUBIN TOTAL 0.48 mg/dL (0.3-1.2); BILIRUBIN,CONJUGATED 0.13 mg/dL (0.0-0.2); BILIRUBIN,UNCONJUGATED 0.35 mg/dL (0.0-0.6); CALCIUM 9.6 mg/dL (8.5-10.1); CREATININE SERUM 0.64 mg/dL (0.55-1.02); GLOBULINA 3.9 G/DL (2.4-3.5); POTASSIUM 4.21 mEq/L (3.5-5.1)
[2025-03-25 08:53] LABS: URINE APPEARANCE Clear; URINE BILIRRUBIN Negative (NEGATIVE); URINE BLOOD Trace; URINE COLOR Yellow; URINE GLUCOSE Negative (NEGATIVE); URINE KETONE Negative (NEGATIVE); URINE LEUKOCYTE Large; URINE NITRATE Negative; URINE PROTEIN Negative (NEGATIVE); URINE UROBILINOGEN 0.2 E.U./dl
[2025-03-25 08:58] LABS: URINE BACTERIA 974.2 uL (0.0-1933); URINE EPITHELIAL CELLS 9.4 uL (0.0-38.8); URINE RBC 24.4 uL (0.0-20.8); URINE WBC 135.8 uL (0.0-23.2)
== END 2025-03-25 12:46 | disposition home or self-care (01) ==
LOC: ER 05:01
PROVIDERS: General Practice
DX: R10.9 Unspecified abdominal pain (principal); Z91.041 Radiographic dye allergy status; Z88.8 Allergy status to other drugs, medicaments and biological substances
CPT/HCPCS: 36415; 74177; Q9965

== ENCOUNTER 2025-04-06 17:56 | Emergency (ER) | payer OTHER ==
[~2025-04-06] VITALS: Ht 152.4 cm; Wt 59.0 kg
[2025-04-06] MEDS ORDERED: CIPROFLOXACIN IN 5 % DEXTROSE 400 MG/200 ML PIGGYBAG IV ONE (20:04)
[2025-04-06] MEDS ORDERED: CIPROFLOXACIN IN 5 % DEXTROSE 200 MG/100 ML PIGGYBAG IV STA (20:07)
[2025-04-06 20:25] LABS: BASO % 0.6 % (0.1-1.2); EOS # 0.08 (0.04-0.54); EOS % 0.8 % (0.7-7.0); HEMATOCRIT 34.8 % (34.1-44.9); HEMOGLOBIN 11.6 g/dL (11.2-15.7); LYMPH # 1.99 (1.18-3.74); LYMPH % 20.8 % (19.3-53.1); MEAN CORPUSCULAR HEMOGLOBIN 28.3 pg (25.6-32.2); MONO # 0.54 (0.24-0.82); MONO % 5.6 % (4.7-12.5); NEUT # 6.89 (1.56-6.13); PLATELET COUNT 217 K/uL (163-369); RED CELL DISTRIBUTION WIDTH 12.6 % (11.6-14.4)
[2025-04-06 20:29] LABS: URINE APPEARANCE Clear; URINE BILIRRUBIN Negative (NEGATIVE); URINE BLOOD Negative; URINE COLOR Yellow; URINE GLUCOSE Negative (NEGATIVE); URINE KETONE Trace (NEGATIVE); URINE LEUKOCYTE Trace; URINE NITRATE Negative; URINE PROTEIN Negative (NEGATIVE); URINE UROBILINOGEN 0.2 E.U./dl
[2025-04-06] MEDS ORDERED: CIPROFLOXACIN HCL 500 MG TABLET PO ONE (20:30)
[2025-04-06 20:32] LABS: URINE BACTERIA 56.2 uL (0.0-1933); URINE EPITHELIAL CELLS 3.7 uL (0.0-38.8); URINE RBC 4.8 uL (0.0-20.8); URINE WBC 8.6 uL (0.0-23.2)
[2025-04-06 20:48] LABS: CALCIUM 9.7 mg/dL (8.5-10.1); CREATININE SERUM 0.56 mg/dL (0.55-1.02); GFR 122.49; POTASSIUM 3.47 mEq/L (3.5-5.1)
[2025-04-06] MEDS ORDERED: ACETAMINOPHEN 500 MG GEL..CAP PO ONE (21:51)
[2025-04-06] MEDS ORDERED: ACETAMINOPHEN 500 MG GEL..CAP PO STA (21:58)
== END 2025-04-07 01:56 | disposition home or self-care (01) ==
LOC: ER 18:34
PROVIDERS: Emergency Medicine
DX: N39.0 Urinary tract infection, site not specified (principal); R10.9 Unspecified abdominal pain; Z88.5 Allergy status to narcotic agent; Z88.8 Allergy status to other drugs, medicaments and biological substances; Z91.041 Radiographic dye allergy status

== ENCOUNTER 2025-05-17 15:41 | Emergency (ER) | payer OTHER ==
[~2025-05-17] VITALS: Ht 165.1 cm; Wt 59.0 kg
[2025-05-17 16:59] LABS: BASO % 0.7 % (0.1-1.2); EOS # 0.05 (0.04-0.54); EOS % 0.8 % (0.7-7.0); LYMPH # 1.39 (1.18-3.74); LYMPH % 23.0 % (19.3-53.1); MEAN PLATELET VOLUME 10.50 fl (9.4-12.4); MONO # 0.42 (0.24-0.82); MONO % 6.9 % (4.7-12.5); NEUT # 4.13 (1.56-6.13); NEUT % 68.3 % (34.0-71.1); RED CELL DISTRIBUTION WIDTH 12.2 % (11.6-14.4)
[2025-05-17 17:23] LABS: ALT/SGPT 25.0 U/L (12-78); AST/SGOT 16.0 U/L (15-37); BILIRUBIN TOTAL 0.69 mg/dL (0.3-1.2); BUN CREA RATIO 7.0 (7.0-25.0); CREATININE SERUM 0.68 mg/dL (0.55-1.02); GFR 97.9; GLOBULINA 3.3 G/DL (2.4-3.5); GLUCOSE FASTING 85.0 mg/dL (65-100); OSMOLALITY SERUM 278.0 MOSM/KG (275-295)
== END 2025-05-17 19:54 | disposition home or self-care (01) ==
LOC: ER 15:41
PROVIDERS: Preventive Medicine Public Health & General Preventive Medicine
DX: M54.50 Low back pain, unspecified (principal); Z93.3 Colostomy status; Z91.041 Radiographic dye allergy status; Z88.1 Allergy status to other antibiotic agents; R10.9 Unspecified abdominal pain

== ENCOUNTER 2025-07-19 13:12 | Emergency (ER) | payer OTHER ==
[~2025-07-19] VITALS: Ht 165.1 cm; Wt 63.5 kg
[2025-07-19] MEDS ORDERED: CIPROFLOXACIN HCL 500 MG TABLET PO ONE (15:30)
[2025-07-19] MEDS ORDERED: ONDANSETRON HCL 2 MG/ML VIAL IM ONE (15:30)
[2025-07-19] MEDS ORDERED: TAMSULOSIN HCL 0.4 MG CAP PO ONE ×2 (15:30→15:39)
[2025-07-19] MEDS ORDERED: ONDANSETRON HCL 2 MG/ML VIAL ONE (15:39)
[2025-07-19 16:24] LABS: BASO % 0.9 % (0.1-1.2); EOS # 0.02 (0.04-0.54); EOS % 0.3 % (0.7-7.0); LYMPH # 1.27 (1.18-3.74); LYMPH % 19.7 % (19.3-53.1); MEAN PLATELET VOLUME 11.00 fl (9.4-12.4); MONO # 0.28 (0.24-0.82); MONO % 4.3 % (4.7-12.5); NEUT # 4.81 (1.56-6.13); NEUT % 74.8 % (34.0-71.1); RED CELL DISTRIBUTION WIDTH 12.4 % (11.6-14.4)
[2025-07-19 16:53] LABS: ALT/SGPT 25 U/L (12-78); AST/SGOT 14 U/L (15-37); BILIRUBIN TOTAL 0.96 mg/dL (0.3-1.2); BUN CREA RATIO 16 (7.0-25.0); CREATININE SERUM 0.56 mg/dL (0.55-1.02); GFR 121.81; GLOBULINA 3.6 G/DL (2.4-3.5); GLUCOSE FASTING 77 mg/dL (65-100); OSMOLALITY SERUM 277 MOSM/KG (275-295)
[2025-07-19 16:54] LABS: HCG QUANTITATIVE < 1 mUI/mL (1-3)
[2025-07-19 17:25] LABS: URINE APPEARANCE Clear; URINE BILIRRUBIN Negative (NEGATIVE); URINE BLOOD Trace; URINE COLOR Yellow; URINE GLUCOSE Negative (NEGATIVE); URINE KETONE Negative (NEGATIVE); URINE LEUKOCYTE Negative; URINE NITRATE Negative; URINE PROTEIN Negative (NEGATIVE); URINE UROBILINOGEN 0.2 E.U./dl
[2025-07-19 17:30] LABS: URINE BACTERIA 26.3 uL (0.0-1933); URINE EPITHELIAL CELLS 5.3 uL (0.0-38.8); URINE RBC 9.8 uL (0.0-20.8); URINE WBC 2.3 uL (0.0-23.2)
[2025-07-19 17:55] LABS: URINE CAST 0.00 uL (0.0-1.40)
[2025-07-19] MEDS ORDERED: NORFLEX100MG PO (18:04)
== END 2025-07-19 18:31 | disposition home or self-care (01) ==
LOC: ER 13:12
PROVIDERS: General Practice
DX: R10.9 Unspecified abdominal pain (principal); M54.50 Low back pain, unspecified; Z88.3 Allergy status to other anti-infective agents; Z88.4 Allergy status to anesthetic agent; Z88.5 Allergy status to narcotic agent; Z91.041 Radiographic dye allergy status

== ENCOUNTER → 2025-08-13 | Emergency (ER) | payer OTHER ==
[~2025-08-13] VITALS: Ht 170.2 cm; Wt 77.1 kg
[~2025-08-13] MED LIST changes: +ACETAMINOPHEN 500 MG GEL..CAP PO ONE
[2025-08-13 14:07] VITALS: BP 117/85; O2SAT 99
[2025-08-13 17:09] LABS: BASO % 0.5 % (0.1-1.2); EOS # 0.03 (0.04-0.54); EOS % 0.4 % (0.7-7.0); LYMPH # 1.06 (1.18-3.74); LYMPH % 14.1 % (19.3-53.1); MEAN PLATELET VOLUME 11.10 fl (9.4-12.4); MONO # 0.35 (0.24-0.82); MONO % 4.7 % (4.7-12.5); NEUT # 6.01 (1.56-6.13); NEUT % 79.9 % (34.0-71.1); RED CELL DISTRIBUTION WIDTH 12.4 % (11.6-14.4)
[2025-08-13 17:10] LABS: URINE APPEARANCE Clear; URINE BILIRRUBIN Negative (NEGATIVE); URINE BLOOD Trace; URINE COLOR Yellow; URINE GLUCOSE Negative (NEGATIVE); URINE KETONE Negative (NEGATIVE); URINE LEUKOCYTE Large; URINE NITRATE Negative; URINE PROTEIN Negative (NEGATIVE); URINE UROBILINOGEN 0.2 E.U./dl
[2025-08-13 17:14] LABS: URINE BACTERIA 129.6 uL (0.0-1933); URINE EPITHELIAL CELLS 6.7 uL (0.0-38.8); URINE RBC 7.3 uL (0.0-20.8); URINE WBC 24.4 uL (0.0-23.2)
[2025-08-13 17:24] LABS: URINE CAST 0.14 uL (0.0-1.40)
[2025-08-13 17:30] LABS: INR 0.98
[2025-08-13 17:49] LABS: ALT/SGPT 35.0 U/L (12-78); AST/SGOT 17.0 U/L (15-37); BILIRUBIN TOTAL 0.45 mg/dL (0.3-1.2); BUN CREA RATIO 18.0 (7.0-25.0); CREATININE SERUM 0.57 mg/dL (0.55-1.02); GFR 119.35; GLOBULINA 3.7 G/DL (2.4-3.5); GLUCOSE FASTING 83.0 mg/dL (65-100); OSMOLALITY SERUM 278.0 MOSM/KG (275-295); PHOSPHOKINASE CREATININE 38.0 U/L (26-192); TSH 1.31 uIU/mL (0.358-3.74)
== END | disposition home or self-care (01) ==
LOC: ER 14:02
DX: M62.838 Other muscle spasm (principal); R07.89 Other chest pain; Z88.8 Allergy status to other drugs, medicaments and biological substances

== ENCOUNTER 2025-09-15 14:35 | Emergency (ER) | payer OTHER ==
[~2025-09-15] VITALS: Ht 165.1 cm; Wt 61.2 kg
[~2025-09-15 14:35] MED LIST changes: -ACETAMINOPHEN 500 MG GEL..CAP PO ONE
[2025-09-15 15:21] VITALS: BP 111/74; O2SAT 100
[2025-09-15] MEDS ORDERED: ACETAMINOPHEN 500 MG GEL..CAP PO ONE (16:15)
[2025-09-15] MEDS ORDERED: 0.9 % SODIUM CHLORIDE 1,000 ML IV SCH (16:15)
[2025-09-15] MEDS ORDERED: MECLIZINE HCL 25 MG TABLET PO ONE (16:15)
[2025-09-15 18:20] LABS: BASO % 1.1 % (0.1-1.2); EOS # 0.06 (0.04-0.54); EOS % 1.1 % (0.7-7.0); LYMPH # 1.61 (1.18-3.74); LYMPH % 28.2 % (19.3-53.1); MEAN PLATELET VOLUME 10.50 fl (9.4-12.4); MONO # 0.29 (0.24-0.82); MONO % 5.1 % (4.7-12.5); NEUT # 3.67 (1.56-6.13); NEUT % 64.3 % (34.0-71.1); RED CELL DISTRIBUTION WIDTH 11.8 % (11.6-14.4)
[2025-09-15 19:11] LABS: ALT/SGPT 30 U/L (12-78); AST/SGOT 17 U/L (15-37); BILIRUBIN TOTAL 0.51 mg/dL (0.3-1.2); BUN CREA RATIO 18 (7.0-25.0); CREATININE SERUM 0.61 mg/dL (0.55-1.02); GFR 110.36; GLOBULINA 3.9 G/DL (2.4-3.5); GLUCOSE FASTING 74 mg/dL (65-100); OSMOLALITY SERUM 277 MOSM/KG (275-295)
[2025-09-15 19:14] LABS: HCG QUANTITATIVE < 1 mUI/mL (1-3)
[2025-09-15] MEDS ORDERED: NEURONTIN300 MG PO (21:44)
== END 2025-09-15 22:23 | disposition home or self-care (01) ==
LOC: ER 14:36
PROVIDERS: General Practice
DX: G50.0 Trigeminal neuralgia (principal); Z88.8 Allergy status to other drugs, medicaments and biological substances